=== PATIENT | male | born 1985 | race Caucasian/White ===

== ENCOUNTER 2018-01-07 04:47 | Emergency (ER) | payer MEDICAID, OTHER ==
[~2018-01-07] VITALS: Ht 170.2 cm; Wt 182.8 kg
--- NOTE | 2018-01-07 04:52 | NUR ---
PT TO ER BED 13. BIBRA FROM HOME C/O "HIGH HR" X 1 HOUR. HX OF AFIB. PT PLACED IN GOWN AND ON CLIENT SUPPORT ASSOCIATE. VSS/RESP EVEN UNLABORED/NAD NOTED/SKIN WARM AND DRY/DENIES N-V-D/RASHMI. AT BEDSIDE FOR EVAL. PT IS ST ON THE CLIENT SUPPORT ASSOCIATE. Addendum: 01/07/18 at 0515 by CANDACE PT DENIES CP AND SOB.
--- NOTE | 2018-01-07 05:05 | NUR ---
20G IV X 1 ATTEMPT TO L HAND USING ASEPTIC TECH, BLOOD HANDED OVER TO THE LAB AT THE BEDSIDE. IV FLUSHES EASILY WITH NS, NO S/S INFILTRATION.
--- NOTE | 2018-01-07 05:10 | NUR ---
XRAY AT BEDSIDE.
[2018-01-07 05:21] LABS: BASOPHILS % (AUTO) 0.6 % (0.0-2.0); HEMATOCRIT 47 % (39-51); LYMPHOCYTES # (AUTO) 2.4 /CMM (0.8-4.8); LYMPHOCYTES % (AUTO) 30.2 % (20.0-44.0); MEAN CORPUSCULAR HGB CONC 34 g/dl (31.0-36.0); MEAN CORPUSCULAR VOLUME 86 fL (80-96); MONOCYTES # (AUTO) 0.5 /CMM (0.1-1.30); MONOCYTES % (AUTO) 5.8 % (2.0-12.0); NEUTROPHILS # (AUTO) 5.1 /CMM (1.8-8.9); NEUTROPHILS % (AUTO) 62.4 % (43.0-81.0); PLATELET COUNT (AUTO) 169 /CMM (150-450); RDW COEFFICIENT OF VARIATION 14.3 (11.5-15.0); WHITE BLOOD COUNT (AUTO) 8.1 K/uL (4.3-11.0)
[2018-01-07 05:36] LABS: ALANINE AMINOTRANSFERASE 44 U/L (12-78); ALBUMIN 3.8 g/dL (3.4-5.0); ALKALINE PHOSPHATASE 86 U/L (46-116); ASPARTATE AMINOTRANSFERASE 31 U/L (15-37); BILIRUBIN,DIRECT 0.1 mg/dL (0.0-0.2); BILIRUBIN,TOTAL 0.6 mg/dL (0.2-1.0); CALCIUM, SERUM 8.7 mg/dL (8.5-10.1); CARBON DIOXIDE 24 mmol/L (21-32); CHLORIDE 101 mmol/L (98-107); CREATININE 1.2 mg/dL (0.6-1.3); GLUCOSE 108 mg/dL (74-106); INR 1.04 (0.87-1.13); POTASSIUM 3.9 mmol/L (3.5-5.1); SODIUM SERUM 138 mmol/L (136-145); TOTAL PROTEIN, SERUM 7.7 g/dL (6.4-8.2); UREA NITROGEN, BLOOD 15 mg/dL (7-18)
[2018-01-07 05:38] LABS: TROPONIN I < 0.017 ng/mL (0.00-0.056)
[2018-01-07 05:54] VITALS: BP 140/86
--- NOTE | 2018-01-07 05:54 | NUR ---
IV removed. Catheter intact and site benign. Pressure and 4x4 applied to site. No bleeding noted. Patient discharged to home in stable condition. Written and verbal after care instructions given. Patient verbalizes understanding of instruction. Patient ambulatory with a steady gait.
== END 2018-01-07 05:55 | disposition home or self-care (01) ==
LOC: ER 04:49
DX: R00.2 Palpitations (principal); F43.10 Post-traumatic stress disorder, unspecified; I48.91 Unspecified atrial fibrillation; F17.200 Nicotine dependence, unspecified, uncomplicated; F12.10 Cannabis abuse, uncomplicated
CPT/HCPCS: 36415; 71045-TC; 80048-TC; 80076-TC; 84484-TC; 85025-TC; 85730-TC; A4606; Z7610

== ENCOUNTER 2019-01-07 19:19 | Emergency (ER) | payer SELFPAY ==
[~2019-01-07] VITALS: Ht 172.7 cm; Wt 170.1 kg
[2019-01-07 19:45] VITALS: BP 144/87
== END 2019-01-07 20:43 | disposition home or self-care (01) ==
LOC: ER 19:20
DX: Z76.0 Encounter for issue of repeat prescription (principal); I48.91 Unspecified atrial fibrillation; I10 Essential (primary) hypertension; E66.01 Morbid (severe) obesity due to excess calories; F43.10 Post-traumatic stress disorder, unspecified; F12.90 Cannabis use, unspecified, uncomplicated; Z68.43 Body mass index [BMI] 50.0-59.9, adult

== ENCOUNTER 2019-02-09 13:22 | Emergency (ER) | payer SELFPAY ==
[~2019-02-09] VITALS: Ht 172.7 cm; Wt 181.4 kg
[2019-02-09 13:34] VITALS: BP 149/82
== END 2019-02-09 15:06 | disposition home or self-care (01) ==
LOC: ER 13:26
DX: Z76.0 Encounter for issue of repeat prescription (principal); E66.01 Morbid (severe) obesity due to excess calories; I10 Essential (primary) hypertension; I48.91 Unspecified atrial fibrillation; F43.10 Post-traumatic stress disorder, unspecified; F12.90 Cannabis use, unspecified, uncomplicated; Z68.44 Body mass index [BMI] 60.0-69.9, adult